=== PATIENT | male | born 1935 | race Caucasian/White ===

== ENCOUNTER → 2016-07-25 | Outpatient (CLI) | payer MEDICARE, MEDICAID ==
[~2016-07-25] MED LIST: DIVA250T27 PO; DONE5TAB PO; ENAL5TAB PO; HALO0.5T PO; LORA0.5T86 PO; METO-277 PO; METO-482 PO; METO25TA6 PO; NITR0.4T39 SL; POLY17PO6 PO; TAMS0.4C47 PO
[2016-07-25 07:27] LABS: ANION GAP 12 MEQ/L (5-15); BUN/CREATININE RATIO 24 RATIO (6-26); CALCIUM 9.5 MG/DL (8.4-10.2); CHLORIDE 105 MEQ/L (98-107); CO2 - CARBON DIOXIDE 29 MEQ/L (22-30); CREATININE 0.7 MG/DL (0.8-1.5); GLOMERULAR FILTRATION RATE 109; GLUCOSE 150 MG/DL (75-110); POTASSIUM 4.1 MEQ/L (3.6-5); SODIUM 146 MEQ/L (134-144)
== END ==
LOC: LABNH.PM 02:04
PROVIDERS: ATTEND Family Medicine
DX: R35.8 Other polyuria (principal)
CPT/HCPCS: 36415; 80048; P9604